=== PATIENT | male | born 1990 | race Two or more races ===

== ENCOUNTER 2019-02-10 11:33 | Inpatient (IN) | payer OTHER ==
[2019-02-10 12:45] VITALS: BMI 25.4
--- NOTE | 2019-02-10 15:42 | HP ---
COWS - Scale Resting Pulse: 1= [place] 81-100 Sweatin=Flushed/Facial Moisture Restless Observation: 1= Difficult to Sit Still Pupil Size: 2= Moderately Dilated Bone or Joint Aches: 1= Mild Discomfort Runny Nose/ Eye Tearin= Runny Nose/Eyes GI Upset > 30mins: 3= Vomiting/Diarrhea Tremor Observation: 2= Slight Tremor Visible Yawning Observation: 1= 1-2x During Session Anxiety or Irritability: 2=Irritable/Anxious Goose Flesh Skin: 0=Smooth Skin COWS Score: 17 CIWA Score - Admission Criteria OASAS Guidelines: Admission for Medically Managed Detox: Requires at least one of the followin. CIWA greater than 12 2. Seizures within the past 24 hours 3. Delirium tremens within the past 24 hours 4. Hallucinations within the past 24 hours 5. Acute intervention needed for co occurring medical disorder 6. Acute intervention needed for co occurring psychiatric disorder 7. Severe withdrawal that cannot be handled at a lower level of care (continued vomiting, continued diarrhea, abnormal vital signs) requiring intravenous medication and/or fluids 8. Admission ROS [facility] Chief Complaint: "detox off heroin" Allergies/Adverse Reactions: Allergies Allergy/AdvReac Type Severity Reaction Status Date / Time No Known Allergies Allergy Verified 02/10/19 12:35 History of Present Illness: 29 year old male with a history of elevated blood pressure and heroin dependence presents for detox off heroin. Reports never completing detox in the past. States that he used to get suboxone (Manju Martinez) with his last prescription several weeks ago in December, but he states that he has not taken it. Wants to go to outpatient rehab when he's done detox. Child support. Heroin Use: 15 bags a day, snorts, last used yesterday; used to inject, last time in the summer; overdosed 2 times, last time in July in [place]. 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 Surgery: never - Ebola screening Have you traveled outside of the country in the last 21 days: No Have you had contact with anyone from an Ebola affected area: No - Review of Systems Constitutional: Chills, Diaphoresis, Loss of Appetite, Unintentional Wgt. Loss EENT: reports: Nose Congestion Respiratory: reports: No Symptoms reported Cardiac: reports: Lightheadedness GI: reports: Nausea, Vomiting : reports: No Symptoms Reported Musculoskeletal: reports: Joint Pain Integumentary: reports: No Symptoms Reported Neuro: reports: Numbness, Tremors Endocrine: reports: Intolerance to Cold Hematology: reports: No Symptoms Reported Psychiatric: reports: Judgement Intact, Mood/Affect Appropiate, Orientated x3, Agitated, Anxious Patient History - Smoking Cessation Smoking history: Current some day smoker Hx Chewing Tobacco Use: No Initiated information on smoking cessation: No - Substances abused Heroin Substance route: Inhalation Frequency: Daily Amount used: 15BAGS Age of first use: 22 Date of last use: 02/09/19 Admission Physical Exam [facility] - Vital Signs Vital Signs: Vital Signs - 24 hr 02/10/19 12:35 Temperature 97.4 F L Pulse Rate 82 Respiratory 18 Rate Blood Pressure 159/90 - Physical General Appearance: Yes: Within Normal Limits, No Apparent Distress, Nourished HEENTM: Yes: EOMI, Normal ENT Inspection, Normocephalic, Normal Voice Respiratory: Yes: Within Normal Limits, Lungs Clear, Normal Breath Sounds Neck: Yes: Within Normal Limits Breast: Yes: Within Normal Limits Cardiology: Yes: Regular Rhythm, Regular Rate Abdominal: Yes: Normal Bowel Sounds, Non Tender, Flat, Soft Back: Yes: Normal Inspection Musculoskeletal: Yes: Within Normal Limits, full range of Motion Extremities: Yes: Normal Capillary Refill, Normal Inspection, Normal Range of Motion, Non-Tender Neurological: Yes: 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
--- NOTE | 2019-02-10 16:11 | PN ---
"Teaching Attending Note Name of Resident: Segundo Brandt ATTENDING PHYSICIAN STATEMENT I saw and evaluated the patient. I reviewed the resident's note and discussed the case with the resident. I agree with the resident's findings and plan as documented. SUBJECTIVE: 29 y.o. male w/ reported heroin use 15 bags / day via inhalation , last used yesterday , IVDU in the past , OD x 2 most recently July 2018 while living in [place] first age of use 22 , sober x 3 years while in [place], relapsed after return to [place] 2 yrs ago to care for his mother dx w/ brain tumor . Denies prior inpt detox episodes. States tried Suboxone , did not tolerate 2/2 n/v . cannabis : daily tobacco : denies PMHX : denies SHX : lives w/ mother , has 11 y.o son in [place] , owes child support , denies other legal issues OBJECTIVE: wnwd , symptoms as above This report was requested by: Connie Sharif | Reference #: [id number] Others' Prescriptions Patient Name: Francisco Moore Date: 1990 Address: [address] [place] [address] Sex: Male Rx Written Rx Dispensed Drug Quantity Days Supply Prescriber Name 01/08/2019 01/10/2019 buprenorphine-naloxone 8-2 mg sl film 28 14 Manju Martinez 10/24/2018 10/25/2018 buprenorphine-naloxone 8-2 mg sl film 60 30 Manju Martinez Vital Signs - 24 hr 02/10/19 12:35 Temperature 97.4 F L Pulse Rate 82 Respiratory 18 Rate Blood Pressure 159/90 ASSESSMENT AND PLAN: Opioid dependence - Methadone detox ."
[2019-02-10] MEDS ORDERED: MAGNESIUM CITRATE 300 ML BOTTLE PO PRN (16:19)
[2019-02-10] MEDS ORDERED: ACETAMINOPHEN 325 MG TABLET (FP) PO PRN ×2 (16:19)
[2019-02-10] MEDS ORDERED: MAG HYDROX/AL HYDROX/SIMETH 30 ML UNIT-DOSE CUP PO PRN (16:19)
[2019-02-10] MEDS ORDERED: MAGNESIUM HYDROX 2400MG/30ML ORAL SUSPENSION 30 ML CUP PO PRN (16:19)
[2019-02-10] MEDS ORDERED: MENTHOL/PHENOL 1 EACH UD MM PRN (16:19)
[2019-02-10] MEDS ORDERED: IBUPROFEN 400 MG TABLET (FP) PO PRN (16:19)
[2019-02-10] MEDS ORDERED: BISMUTH SUBSALICYLATE 524 MG/30 ML UD PO PRN (16:19)
[2019-02-10] MEDS ORDERED: METHADONE HCL 10 MG TABLET (FOR DETOX USE ONLY) PO ONE (16:45)
[2019-02-10] MEDS: cloNIDine HCL 0.1 MG TABLET PO PRN (21:24)
[2019-02-10] MEDS: hydrOXYzine PAMOATE 25 MG CAPSULE (FP) PO PRN (21:24)
[2019-02-10] MEDS: THIAMINE HCL 100 MG TABLET (FP) PO SCH (21:24)
[2019-02-10] MEDS ORDERED: MELATONIN 5 MG TABLETS PO PRN (22:00)
[2019-02-11] MEDS: hydrOXYzine PAMOATE 25 MG CAPSULE (FP) PO PRN ×2 (05:31→14:21)
[2019-02-11] MEDS ORDERED: METHADONE HCL 10 MG TABLET (FOR DETOX USE ONLY) ONE (09:24)
[2019-02-11] MEDS ORDERED: METHADONE HCL 5 MG TABLET (FOR DETOX USE ONLY) ONE (09:24)
[2019-02-11] MEDS ORDERED: TRIMETHOBENZAMIDE HCL 200MG/2ML INJ IM PRN (09:27)
[2019-02-11] MEDS ORDERED: METHADONE (DETOX) 20 MG, METHADONE (DETOX) 5 MG PO ONE (10:00)
[2019-02-11] MEDS: cloNIDine HCL 0.1 MG TABLET PO PRN ×2 (10:13→22:19)
[2019-02-11] MEDS: PRENATAL VITAMINS W/ FOLIC ACID TABLET (FP) PO SCH (10:13)
[2019-02-11] MEDS: diazePAM 5 MG TABLET PO PRN ×3 (10:14→22:19)
[2019-02-11] MEDS ORDERED: FLU VACCINE QUAD 60 MCG/0.5 ML (MDV 19-20) IM ONE (12:00)
[2019-02-11 12:10] LABS: HEMATOCRIT 44.9 % (35.4-49); HEMOGLOBIN 15.3 GM/dL (11.7-16.9); MCH 30.3 pg (25.7-33.7); MCHC 34.2 g/dl (32.0-35.9); MEAN CELL VOLUME 88.6 fl (80-96); MEAN PLT VOLUME 8.3 fl (7.5-11.1); PLATELET COUNT 373 K/MM3 (134-434); RBC 5.07 M/mm3 (4.00-5.60); RDW 13.4 % (11.9-15.9)
[2019-02-11 12:26] LABS: ALBUMIN 4.7 g/dl (3.4-5.0); BILIRUBIN,TOTAL 1.6 mg/dL (0.2-1); BLOOD UREA NITROGEN 11.3 mg/dL (7-18); CALCIUM 10.1 mg/dL (8.5-10.1); CREATININE 0.9 mg/dL (0.55-1.3); POTASSIUM 4.4 mmol/L (3.5-5.1); TOT PROT 8.4 g/dl (6.4-8.2)
--- NOTE | 2019-02-11 16:57 | PN ---
BHS COWS - Scale Resting Pulse: 1= [place] 81-100 Sweatin= No chills or Flushing Restless Observation: 1= Difficult to Sit Still Pupil Size: 0= Normal to Room Light Bone or Joint Aches: 1= Mild Discomfort Runny Nose/ Eye Tearin= None GI Upset > 30mins: 2= Nausea/Diarrhea (Constipation.) Tremor Observation of Outstretched Hands: 0= None Yawning Observation: 1= 1-2x During Session Anxiety or Irritability: 2=Irritable/Anxious Goose Flesh Skin: 3=Piloerection COWS Score: 11 BHS Progress Note (SOAP) Subjective: Nausea, Constipation, Anxious, Body Aches, Interrupted Sleep. Objective: PATIENT A & O X 3, OBSERVED AMBULATING ON DETOX UNIT UNASSISTED. IN NO ACUTE DISTRESS. 02/11/19 16:58 Vital Signs Temperature 98.7 F 02/11/19 13:37 Pulse Rate 83 02/11/19 13:37 Respiratory Rate 16 02/11/19 13:37 Blood Pressure 103/71 02/11/19 13:37 O2 Sat by Pulse Oximetry (%) Laboratory Tests 02/11/19 02/11/19 08:20 08:20 WBC 8.0 RBC 5.07 Hgb 15.3 Hct 44.9 MCV 88.6 MCH 30.3 MCHC 34.2 RDW 13.4 Plt Count 373 MPV 8.3 Sodium 139 Potassium 4.4 Chloride 102 Carbon Dioxide 31 Anion Gap 6 L BUN 11.3 Creatinine 0.9 Est GFR (CKD-EPI)AfAm 133.30 Est GFR (CKD-EPI)NonAf 115.01 Random Glucose 82 Calcium 10.1 Total Bilirubin 1.6 H AST 10 L ALT 13 Alkaline Phosphatase 66 Total Protein 8.4 H Albumin 4.7 LABS NOTED. RESULT OF DETOX ADMISSION RPR PENDING. 02/11/19 16:59 Assessment: 02/11/19 16:58 WITHDRAWAL SYMPTOMS. HYPERBILIRUBINEMIA. 02/11/19 16:59 Plan: CONTINUE DETOX. INCREASE DAILY PO WATER INTAKE. PRN MOM FOR CONSTIPATION.
[2019-02-11] MEDS: THIAMINE HCL 100 MG TABLET (FP) PO SCH (22:18)
[2019-02-11] MEDS: MELATONIN 5 MG TABLETS PO PRN (23:00)
[2019-02-11] MEDS: METHOCARBAMOL 500 MG TABLET PO PRN (23:02)
[2019-02-12] MEDS: diazePAM 5 MG TABLET PO PRN ×5 (05:17→23:14)
[2019-02-12] MEDS ORDERED: METHADONE HCL 10 MG TABLET (FOR DETOX USE ONLY) PO ONE (10:00)
[2019-02-12] MEDS: PRENATAL VITAMINS W/ FOLIC ACID TABLET (FP) PO SCH (10:08)
--- NOTE | 2019-02-12 11:41 | PN ---
BHS COWS - Scale Resting Pulse: 0= [place] 80 or Below Sweatin= Chills/Flushing Restless Observation: 1= Difficult to Sit Still Pupil Size: 0= Normal to Room Light Bone or Joint Aches: 1= Mild Discomfort Runny Nose/ Eye Tearin= Nasal Congestion GI Upset > 30mins: 1= Stomach Cramp Tremor Observation of Outstretched Hands: 1= Tremor [place], Not Seen Yawning Observation: 1= 1-2x During Session Anxiety or Irritability: 1=Feels Anxious/Irritable Goose Flesh Skin: 0=Smooth Skin COWS Score: 8 BHS Progress Note (SOAP) Subjective: c/o poor appetite, chills, sweats, interrupted sleep , left knee pain d/t hx old injury torn ACL Objective: 02/12/19 11:39 Vital Signs Temperature 96.6 F L 02/12/19 09:04 Pulse Rate 71 02/12/19 09:04 Respiratory Rate 18 02/12/19 09:04 Blood Pressure 114/76 02/12/19 09:04 O2 Sat by Pulse Oximetry (%) Laboratory Last Values WBC 8.0 K/mm3 (4.0-10.0) 02/11/19 08:20 RBC 5.07 M/mm3 (4.00-5.60) 02/11/19 08:20 Hgb 15.3 GM/dL (11.7-16.9) 02/11/19 08:20 Hct 44.9 % (35.4-49) 02/11/19 08:20 MCV 88.6 fl (80-96) 02/11/19 08:20 MCH 30.3 pg (25.7-33.7) 02/11/19 08:20 MCHC 34.2 g/dl (32.0-35.9) 02/11/19 08:20 RDW 13.4 % (11.9-15.9) 02/11/19 08:20 Plt Count 373 K/MM3 (134-434) 02/11/19 08:20 MPV 8.3 fl (7.5-11.1) 02/11/19 08:20 Sodium 139 mmol/L (136-145) 02/11/19 08:20 Potassium 4.4 mmol/L (3.5-5.1) 02/11/19 08:20 Chloride 102 mmol/L (98-107) 02/11/19 08:20 Carbon Dioxide 31 mmol/L (21-32) 02/11/19 08:20 Anion Gap 6 MMOL/L (8-16) L 02/11/19 08:20 BUN 11.3 mg/dL (7-18) 02/11/19 08:20 Creatinine 0.9 mg/dL (0.55-1.3) 02/11/19 08:20 Est GFR (CKD-EPI)AfAm 133.30 02/11/19 08:20 Est GFR (CKD-EPI)NonAf 115.01 02/11/19 08:20 Random Glucose 82 mg/dL (74-106) 02/11/19 08:20 Calcium 10.1 mg/dL (8.5-10.1) 02/11/19 08:20 Total Bilirubin 1.6 mg/dL (0.2-1) H 02/11/19 08:20 AST 10 U/L (15-37) L 02/11/19 08:20 ALT 13 U/L (13-61) 02/11/19 08:20 Alkaline Phosphatase 66 U/L (45-117) 02/11/19 08:20 Total Protein 8.4 g/dl (6.4-8.2) H 02/11/19 08:20 Albumin 4.7 g/dl (3.4-5.0) 02/11/19 08:20 Assessment: 02/12/19 11:40 Aox3 no acute distress full ROM ambulating in the unit independently no edema or erythema present withdrawal sx Plan: increase PO fluids continue detox continue to monitor
[2019-02-12] MEDS: METHOCARBAMOL 500 MG TABLET PO PRN (22:46)
[2019-02-12] MEDS: MELATONIN 5 MG TABLETS PO PRN (22:46)
[2019-02-12] MEDS: THIAMINE HCL 100 MG TABLET (FP) PO SCH (22:46)
[2019-02-13] MEDS: diazePAM 5 MG TABLET PO PRN (05:37)
[2019-02-13] MEDS ORDERED: METHADONE HCL 5 MG TABLET (FOR DETOX USE ONLY) ONE (09:01)
[2019-02-13] MEDS ORDERED: METHADONE HCL 10 MG TABLET (FOR DETOX USE ONLY) ONE (09:01)
[2019-02-13 09:09] VITALS: BP 123/83; PULSE 104; TEMP 96.6
--- NOTE | 2019-02-13 09:35 | PN ---
BHS COWS - Scale Resting Pulse: 2= [place] 101-120 Sweatin= Chills/Flushing Restless Observation: 1= Difficult to Sit Still Pupil Size: 0= Normal to Room Light Bone or Joint Aches: 1= Mild Discomfort Runny Nose/ Eye Tearin= Nasal Congestion GI Upset > 30mins: 1= Stomach Cramp Tremor Observation of Outstretched Hands: 1= Tremor [place], Not Seen Yawning Observation: 0= None Anxiety or Irritability: 1=Feels Anxious/Irritable Goose Flesh Skin: 0=Smooth Skin COWS Score: 9 BHS Progress Note (SOAP) Subjective: interrupted sleep, sweats, Objective: 02/13/19 09:33 Vital Signs Temperature 96.6 F L 02/13/19 09:08 Pulse Rate 104 H 02/13/19 09:08 Respiratory Rate 18 02/13/19 09:08 Blood Pressure 123/83 02/13/19 09:08 O2 Sat by Pulse Oximetry (%) Laboratory Tests 02/11/19 02/11/19 02/11/19 08:20 08:20 08:20 WBC 8.0 RBC 5.07 Hgb 15.3 Hct 44.9 MCV 88.6 MCH 30.3 MCHC 34.2 RDW 13.4 Plt Count 373 MPV 8.3 Sodium 139 Potassium 4.4 Chloride 102 Carbon Dioxide 31 Anion Gap 6 L BUN 11.3 Creatinine 0.9 Est GFR (CKD-EPI)AfAm 133.30 Est GFR (CKD-EPI)NonAf 115.01 Random Glucose 82 Calcium 10.1 Total Bilirubin 1.6 H AST 10 L ALT 13 Alkaline Phosphatase 66 Total Protein 8.4 H Albumin 4.7 RPR Titer Nonreactive pt aox3 in nad ambulating well Assessment: 02/13/19 09:34 withdrawal sx's Plan: continue detox increase fluids pt given lab results
[2019-02-13] MEDS ORDERED: METHADONE (DETOX) 10 MG, METHADONE (DETOX) 5 MG PO ONE (10:00)
[2019-02-13] MEDS: PRENATAL VITAMINS W/ FOLIC ACID TABLET (FP) PO SCH (10:21)
[2019-02-13] MEDS: hydrOXYzine PAMOATE 25 MG CAPSULE (FP) PO PRN (10:23)
--- NOTE | 2019-02-13 10:42 | DS ---
[facility] Detox Discharge Summary Admission Date: 02/10/19 Discharge Date: 02/13/19 - History Present History: Cannabis Dependence, Opioid Dependence Additional Comments: Patient left AMA. Advised on the risk of interrupting treatment which include relapse, overdose and even . Patient reports will follow up with [facility] located at [address] [place] [address] to resume tx with suboxone. Patent advised if worsening symptoms are present to seek medical attention. Pertinent Past History: Vital Signs Temperature 96.6 F L 02/13/19 09:08 Pulse Rate 104 H 02/13/19 09:08 Respiratory Rate 18 02/13/19 09:08 Blood Pressure 123/83 02/13/19 09:08 O2 Sat by Pulse Oximetry (%) Laboratory Last Values WBC 8.0 K/mm3 (4.0-10.0) 02/11/19 08:20 RBC 5.07 M/mm3 (4.00-5.60) 02/11/19 08:20 Hgb 15.3 GM/dL (11.7-16.9) 02/11/19 08:20 Hct 44.9 % (35.4-49) 02/11/19 08:20 MCV 88.6 fl (80-96) 02/11/19 08:20 MCH 30.3 pg (25.7-33.7) 02/11/19 08:20 MCHC 34.2 g/dl (32.0-35.9) 02/11/19 08:20 RDW 13.4 % (11.9-15.9) 02/11/19 08:20 Plt Count 373 K/MM3 (134-434) 02/11/19 08:20 MPV 8.3 fl (7.5-11.1) 02/11/19 08:20 Sodium 139 mmol/L (136-145) 02/11/19 08:20 Potassium 4.4 mmol/L (3.5-5.1) 02/11/19 08:20 Chloride 102 mmol/L (98-107) 02/11/19 08:20 Carbon Dioxide 31 mmol/L (21-32) 02/11/19 08:20 Anion Gap 6 MMOL/L (8-16) L 02/11/19 08:20 BUN 11.3 mg/dL (7-18) 02/11/19 08:20 Creatinine 0.9 mg/dL (0.55-1.3) 02/11/19 08:20 Est GFR (CKD-EPI)AfAm 133.30 02/11/19 08:20 Est GFR (CKD-EPI)NonAf 115.01 02/11/19 08:20 Random Glucose 82 mg/dL (74-106) 02/11/19 08:20 Calcium 10.1 mg/dL (8.5-10.1) 02/11/19 08:20 Total Bilirubin 1.6 mg/dL (0.2-1) H 02/11/19 08:20 AST 10 U/L (15-37) L 02/11/19 08:20 ALT 13 U/L (13-61) 02/11/19 08:20 Alkaline Phosphatase 66 U/L (45-117) 02/11/19 08:20 Total Protein 8.4 g/dl (6.4-8.2) H 02/11/19 08:20 Albumin 4.7 g/dl (3.4-5.0) 02/11/19 08:20 RPR Titer Nonreactive (NONREACTIVE) 02/11/19 08:20 - Physical Exam Results Vital Signs: Vital Signs Temperature 96.6 F L 02/13/19 09:08 Pulse Rate 104 H 02/13/19 09:08 Respiratory Rate 18 02/13/19 09:08 Blood Pressure 123/83 02/13/19 09:08 O2 Sat by Pulse Oximetry (%) - Treatment Hospital Course: Detox Protocol Followed, Discharged Condition Good, Rehab Referral Accepted Patient has Accepted a Rehab Referral to: [facility] located at [address] [place] [address] 105 - Medication Discharge Medications: Ambulatory Orders Buprenorphine/Naloxone [Suboxone 8Mg/2Mg Sl Film -] 2 each SL DAILY 02/10/19 - Diagnosis (1) Opioid dependence with withdrawal Status: Acute (2) Cannabis dependence, uncomplicated Status: Acute - AMA Did Patient Leave Against Medical Advice: Yes
[2019-02-14] MEDS ORDERED: METHADONE HCL 10 MG TABLET (FOR DETOX USE ONLY) PO ONE (10:00)
[2019-02-15] MEDS ORDERED: METHADONE HCL 5 MG TABLET (FOR DETOX USE ONLY) PO ONE (06:00)
== END 2019-02-13 11:31 | disposition left against medical advice (07) | DRG 770 ==
LOC: YASAS 11:33 → Y3N 16:39
PROVIDERS: ADMIT Allergy & Immunology; ATTEND Allergy & Immunology
PROC: HZ2ZZZZ Detoxification Services for Substance Abuse Treatment (ICD-10-PCS; principal; 2019-02-10)
DX: F11.23 Opioid dependence with withdrawal (principal); F12.20 Cannabis dependence, uncomplicated; E80.6 Other disorders of bilirubin metabolism; K59.00 Constipation, unspecified
CPT/HCPCS: 36415; 80053; 85027; 86593; J0735